=== PATIENT | male | born 1955 | race Caucasian/White ===

== ENCOUNTER → 2017-12-27 | Outpatient (CLI) | payer OTHER | END | disposition home or self-care (01) | DX: M16.11 Unilateral primary osteoarthritis, right hip (principal); M25.551 Pain in right hip; M25.651 Stiffness of right hip, not elsewhere classified; Z74.1 Need for assistance with personal care | CPT/HCPCS: 97161 GP; 97165 GO; 97530 GP; 97535 GO ==

== ENCOUNTER 2018-01-16 22:02 | Inpatient (IN) | payer OTHER ==
[~2018-01-16] VITALS: Ht 165.1 cm; Wt 101.7 kg
[~2018-01-16 22:02] MED LIST: ADVIL200 MG PO; CENTRUM MEN'S1 EACH PO
[2018-01-17 06:05] VITALS: BP 156/87
[2018-01-17 09:57] LABS: HEMATOCRIT 45.8 % (38.0-50.0); HEMOGLOBIN 14.9 G/DL (12.5-16.6); MCH 30.7 PG (29.0-34.0); MCHC 32.5 G/DL (30.0-36.0); MCV 94.2 FL (86-99); PLATELET COUNT 221 K/uL (156-360); RED BLOOD COUNT 4.86 M/uL (4.00-5.50)
[2018-01-17 10:53] VITALS: BP 166/79
[2018-01-17 16:10] VITALS: BP 134/63
[2018-01-17 20:24] VITALS: BP 149/69
[2018-01-18 00:30] VITALS: BP 131/68
[2018-01-18 04:15] VITALS: BP 139/64
[2018-01-18 05:23] LABS: HEMATOCRIT 42.9 % (38.0-50.0); HEMOGLOBIN 14.1 G/DL (12.5-16.6); MCV 93.9 FL (86-99)
[2018-01-18 05:53] LABS: CHLORIDE 101 MEQ/L (99-109); GFR ESTIMATE (CALCULATED) > 59 mL/min/ (58.99-99999); GLUCOSE 116 mg/dL (70-99); POTASSIUM 4.3 MEQ/L (3.7-5.4); SODIUM 136 MEQ/L (136-147); UREA NITROGEN (BUN) 15 mg/dL (9-23)
[2018-01-18 08:23] VITALS: BP 155/77
[2018-01-18 12:24] VITALS: BP 140/63
[2018-01-18 15:47] VITALS: BP 149/68
[2018-01-18 20:00] VITALS: BP 159/71
[2018-01-19 00:15] VITALS: BP 161/75
[2018-01-19 08:07] VITALS: BP 134/71
[2018-01-19] MEDS ORDERED: SENNA PLUS TAB1 EACH PO (08:41)
[2018-01-19] MEDS ORDERED: ENDOCET 5-3251 EACH PO (08:41)
[2018-01-19] MEDS ORDERED: LOVENOX40 MG/0.4 SC (08:41)
[2018-01-19 12:17] VITALS: BP 134/63
== END 2018-01-19 13:33 | disposition home or self-care (01) | DRG 470 ==
LOC: ENRESERV 22:02 → 3WEST 01-17 05:32 → 2SOUTH 01-17 05:32 → 3WEST 01-17 10:20 → 2SOUTH 01-17 13:17 → 3WEST 01-19 13:33
PROVIDERS: Orthopaedic Surgery
PROC: 0SR90JA Replacement of Right Hip Joint with Synthetic Substitute, Uncemented, Open Approach (ICD-10-PCS; principal; 2018-01-17)
DX: M16.11 Unilateral primary osteoarthritis, right hip (principal)
CPT/HCPCS: 73501; 80048; 85014; 85018; 85027; J0330; J0690; J1170; J1650; J2250; J2405; J3010; J7050; S0020